=== PATIENT | male | born 1975 | race Caucasian/White ===

== ENCOUNTER 2018-03-24 18:35 | Emergency (ER) | payer MEDICARE ==
[~2018-03-24] VITALS: Ht 182.9 cm; Wt 72.7 kg
[2018-03-24] MEDS ORDERED: PROP10TA73 PO (18:44)
[2018-03-24] MEDS ORDERED: HIV MEDS PO (18:44)
[2018-03-24] MEDS ORDERED: DOXY150T PO (18:44)
[2018-03-24] MEDS ORDERED: OxyCODONE HCL/ACETAMINOPHEN 5-325 MG TABLET PO ONE (19:15)
[2018-03-24 21:18] VITALS: BP 117/71
== END 2018-03-24 20:49 | disposition home or self-care (01) ==
LOC: EMS 18:36
DX: S02.2XXA Fracture of nasal bones, initial encounter for closed fracture (principal); S62.617A Displaced fracture of proximal phalanx of left little finger, initial encounter for closed fracture; S63.501A Unspecified sprain of right wrist, initial encounter; Z88.1 Allergy status to other antibiotic agents; Z79.899 Other long term (current) drug therapy; W05.2XXA Fall from non-moving motorized mobility scooter, initial encounter; Y93.89 Activity, other specified; Y92.89 Other specified places as the place of occurrence of the external cause; Y99.8 Other external cause status
CPT/HCPCS: 70486